=== PATIENT | female | born 1990 | race Caucasian/White ===

== ENCOUNTER 2022-05-07 17:04 | Outpatient (CLI) | payer OTHER | END 2022-05-07 18:11 | disposition home or self-care (01) | LOC: NST 17:04 | PROVIDERS: ATTEND Obstetrics & Gynecology | DX: Z34.83 Encounter for supervision of other normal pregnancy, third trimester (principal) ==

== ENCOUNTER 2022-05-13 17:03 | Outpatient (CLI) | payer OTHER | END 2022-05-13 18:20 | disposition home or self-care (01) | LOC: NST 17:03 | PROVIDERS: ATTEND Obstetrics & Gynecology Gynecology | DX: Z34.83 Encounter for supervision of other normal pregnancy, third trimester (principal) ==